=== PATIENT | male | born 1980 | race Caucasian/White ===

== ENCOUNTER 2023-04-13 11:12 | Emergency (ER) | payer BC, SELFPAY ==
[2023-04-13 11:14] VITALS: BP 136/78; PULSE 78; RESP 16; TEMP 35.7; O2SAT 99; BMI 28.2
--- NOTE | 2023-04-13 11:34 | EX.ED.DYSGE1 ---
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 Patient states that for the last 3 to 4 weeks, he has noticed that his lower extremities are more tight, he is having joint pain throughout his entire body. Patient states he has significant feet pain. He denies any known injury, denies pushing himself harder than usual. He states today, he was unable to get out of bed. He is here for evaluation. He states in the morning is when it is worse however once he gets moving, he is able to loosen up and feel better. PFSH <ADAM Mitchell - Last Filed: 04/13/23 14:46> PFSH Allergy/AdvReac Type Severity Reaction Status Date / Time propofol Allergy Anaphylaxis Verified 04/13/23 11:13 Social History Smoking Status: Never smoker ROS <ADAM Mitchell - Last Filed: 04/13/23 14:46> ROS ED ROS Narrative Constitutional: Negative for fever, chills, weight loss, weakness Eyes: Negative for vision loss, vision change, double vision ENT: Negative for any sore throat, ear pain, congestion Cardiovascular: Negative for any chest pain, tightness, palpitations Respiratory: Negative for any cough, sputum production, hemoptysis, dyspnea, dyspnea on exertion, orthopnea Gastrointestinal: Negative for any abdominal pain, nausea, vomiting, diarrhea, constipation, blood in stool, blood in vomit : Negative for any urinary frequency, dysuria, retention, blood in urine Muscle skeletal: Negative for any neck pain, back pain. Positive for myalgias, arthralgias, pain to joints specially on his elbows shoulders knees Neurological: Negative for any headache, syncope, paresthesias, dizziness Skin: Negative for any rashes, lumps, itching, abrasions, lacerations Psychiatric: Negative for any depression, anxiety, stress, suicidal ideation, homicidal ideation Hematologic: Negative for any easy bruising, excessive bruising, easy bleeding Allergies: Negative for any eczema, hives, rash EXAM <ADAM Mitchell - Last Filed: 04/13/23 14:46> Physical Exam Narrative Exam Narrative: Vital signs reviewed. Patient has a flat affect, patient is in no obvious distress, HEET: Head normocephalic atraumatic, TMs clear bilaterally. Posterior pharynx is clear, moist mucous membranes. Nares clear bilaterally. Neck: Supple with no lymphadenopathy or tenderness. No signs of meningismus. Cardiac: Regular rate and rhythm no murmurs gallops or rubs, equal peripheral pulses bilaterally. Respiratory: Lungs clear to auscultation bilaterally. No chest tenderness. Abdomen: Soft, nontender, nondistended. No abdominal bruit or pulsatile masses. No hepatosplenomegaly Extremities: No peripheral edema, no signs of gross trauma or deformity. Active full range of motion of all extremities. Neuro: Cranial nerves II through XII intact, no focal neurological deficits. Skin: Clean dry and intact with no rash, purpura, petechiae, vesicles or pustules. Backs/flank: No CVA tenderness, no midline spinal tenderness, no deformity. Psych: Normal mood and affect. No SI, HI or acute psychosis. Const Vital Signs: 04/13/23 11:14 04/13/23 11:12 04/13/23 13:12 Temperature 96.3 F L Temperature Source Temporal Pulse Rate 78 64 Respiratory Rate 16 14 Respiratory Effort Normal Respiratory Pattern Normal Blood Pressure 136/78 H 132/78 H Blood Pressure Mean 97 96 Pulse Ox 99 97 Oxygen Delivery Method Room Air Room Air Positive well nourished and well developed General Appearance ED: well developed <Dr. Jaun Steve MD - Last Filed: 04/13/23 22:06> Physical Exam Const Vital Signs: 04/13/23 11:14 04/13/23 11:12 04/13/23 13:12 Temperature 96.3 F L Temperature Source Temporal Pulse Rate 78 64 Respiratory Rate 16 14 Respiratory Effort Normal Respiratory Pattern Normal Blood Pressure 136/78 H 132/78 H Blood Pressure Mean 97 96 Pulse Ox 99 97 Oxygen Delivery Method Room Air Room Air MDM <ADAM Mitchell - Last Filed: 04/13/23 14:46> MDM Lab Data Labs: Laboratory Results - last 24 hr 04/13/23 04/13/23 12:07 12:50 WBC 14.2 H RBC 4.69 Hgb 14.9 Hct 44.9 MCV 95.7 H MCH 31.8 MCHC 33.2 RDW Std Deviation 43.8 RDW Coeff of George 12.4 Plt Count 336 MPV 10.2 Immature Gran % (Auto) 0.400 Neut % (Auto) 81.8 H Lymph % (Auto) 8.6 L [place] % (Auto) 8.5 Eos % (Auto) 0.3 Baso % (Auto) 0.4 Absolute Neuts (auto) 11.6 H Absolute Lymphs (auto) 1.22 Nucleated RBC % 0 Sodium 139 Potassium 3.9 Chloride 105 Carbon Dioxide 30.0 Anion Gap 4 L BUN 9 Creatinine 0.61 L Estim Creat Clear Calc 180.94 Est GFR (MDRD) Af Amer 187 Est GFR (MDRD) Non-Af 155 BUN/Creatinine Ratio 14.7 Glucose 95 Calcium 9.3 Total Bilirubin 0.50 AST 54 H ALT 71 H Alkaline Phosphatase 78 Total Creatine Kinase 807 H Total Protein 7.9 Albumin 3.5 Globulin 4.4 H Albumin/Globulin Ratio 0.8 L Urine Color Yellow Urine Clarity Clear Urine pH 8.0 Ur Specific [place] 1.015 Urine Protein Negative Urine Glucose (UA) Normal Urine Ketones Negative Urine Occult Blood Negative Urine Nitrite Negative Urine Bilirubin Negative Urine Urobilinogen Normal Ur Leukocyte Esterase Negative Urine RBC 0 SEEN Urine WBC 0 SEEN Ur Squamous Epith Cells 0 SEEN Urine Bacteria 0 SEEN Urine Mucus 0 SEEN Treatment and Re-Evaluation :: Patient appears to be in no obvious distress, vital signs are stable. Presenting to the emergency department with complaints of generalized bodyaches, tightness in his lower muscles, shoulder pain. Patient is in no obvious respiratory distress. Differential diagnosis includes rhabdomyolysis, muscle strain, autoimmune disorder. Patient will receive basic laboratory values ensure that there is no renal insufficiency, leukocytosis. Patient will receive a CK total to rule out any rhabdomyolysis. Patient was given IV fluids, IV Toradol. He will be reevaluated. On reevaluation, the patient was feeling much better with IV fluids, IV Toradol. Patient is ambulatory and felt much more steady. Patient's laboratory values showed a slight leukocytosis with a white blood count of 14.2, chemistries showed a creatinine 1.61 slightly low, AST 54 with ALT of 71, slightly elevated. Total creatine kinase was elevated at 807, however secondary to no renal injury, patient's urinalysis was unremarkable, negative for any protein or blood. Patient is currently not in acute rhabdomyolysis. However I will reach out to the patient's specialist at [facility] to discuss the patient's condition and have a plan set. I spoke with the patient he is happy with the plan of care. We spoke to her partner of his care provider at [facility], we will defer all treatment to them. Patient will follow-up early this upcoming week. I spoke with the patient at length, they are happy with the plan of care. We also looked at his past lab values and they were similar. Patient continue to take ibuprofen, Tylenol, maintain hydration. He will follow-up outpatient. All questions answered stable for discharge <Dr. Jaun Steve MD - Last Filed: 04/13/23 22:06> [facility] Lab Data Labs: Laboratory Results - last 24 hr 04/13/23 04/13/23 12:07 12:50 WBC 14.2 H RBC 4.69 Hgb 14.9 Hct 44.9 MCV 95.7 H MCH 31.8 MCHC 33.2 RDW Std Deviation 43.8 RDW Coeff of George 12.4 Plt Count 336 MPV 10.2 Immature Gran % (Auto) 0.400 Neut % (Auto) 81.8 H Lymph % (Auto) 8.6 L [place] % (Auto) 8.5 Eos % (Auto) 0.3 Baso % (Auto) 0.4 Absolute Neuts (auto) 11.6 H Absolute Lymphs (auto) 1.22 Nucleated RBC % 0 Sodium 139 Potassium 3.9 Chloride 105 Carbon Dioxide 30.0 Anion Gap 4 L BUN 9 Creatinine 0.61 L Estim Creat Clear Calc 180.94 Est GFR (MDRD) Af Amer 187 Est GFR (MDRD) Non-Af 155 BUN/Creatinine Ratio 14.7 Glucose 95 Calcium 9.3 Total Bilirubin 0.50 AST 54 H ALT 71 H Alkaline Phosphatase 78 Total Creatine Kinase 807 H Total Protein 7.9 Albumin 3.5 Globulin 4.4 H Albumin/Globulin Ratio 0.8 L Urine Color Yellow Urine Clarity Clear Urine pH 8.0 Ur Specific [place] 1.015 Urine Protein Negative Urine Glucose (UA) Normal Urine Ketones Negative Urine Occult Blood Negative Urine Nitrite Negative Urine Bilirubin Negative Urine Urobilinogen Normal Ur Leukocyte Esterase Negative Urine RBC 0 SEEN Urine WBC 0 SEEN Ur Squamous Epith Cells 0 SEEN Urine Bacteria 0 SEEN Urine Mucus 0 SEEN Treatment and Re-Evaluation Comments:: I have personally performed a face to face assessment of the patient and have reviewed the FANI Note. I performed a substantive portion of the visit including all aspects of the following. My go findings include: History is myalgias that are worsening for the past 3 to 4 weeks. No focal weakness or numbness. No fevers or chills. No hematuria. 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 Able to walk. All compartments of extremities are soft and nondistended. Neurovascular intact distally. Able to move all joints without significant difficulty. Medical Decison Making agree with labs and treatment as above. Other additions or changes: [None] Discharge Plan Triage Chief Complaint: Other, Pain/Inj ED Midlevel Provider: Sean Rangel ED Provider: Jaun Steve Dx/Rx/DC Orders Clinical Impression: Myalgia, Myopathy, Mitochondrial myopathies Instructions: ED Myalgias, ED Myofascial Pain Syndrome Primary Care Provider: Elizabeth Ly Referrals: Elizabeth Ly [email or web address] [Primary Care Provider] - Activity Restrictions/Additional Instructions: Please continue to talk to your specialist at [facility]. Maintain hydration. Use ibuprofen, Tylenol. Disposition Disposition: Home, Self Care Discharge Date/Time: 04/13/23 14:56
[2023-04-13] MEDS: 0.9% Normal Saline (1000mL) 1,000 ML 1000 ML IV (12:04)
[2023-04-13] MEDS: Ketorolac 15 MG/ML Vial IV (12:04)
[2023-04-13 12:11] LABS: Absolute Lymphocyte Count 1.22 X10^3/uL (0.83-4.51); Absolute Neutrophil Count 11.6 X10^3/uL (2.0-7.7); Basophil# 0.06 X10^3/uL; Basophil% 0.4 % (0-1); Eosinophil# 0.04 X10^3/uL; Eosinophils% 0.3 % (0-5); Hematocrit 44.9 % (40-54); Hemoglobin 14.9 g/dL (13.0-16.5); Lymphocyte # 1.22 X10^3/ul (0.83-4.51); Lymphocyte % 8.6 % (19-41); Mean Corp Hgb Conc 33.2 g/dL (32-36); Mean Corpuscular Hgb 31.8 pg (27.0-32.0); Mean Corpuscular Volume 95.7 fL (80-94); Mean Platelet Vol. 10.2 fl (6.2-12.0); Monocyte% 8.5 % (0-10); NRBC Flagged by Analyzer 0 % (0-5); Neutrophil # 11.59 X10^3/uL (2.7-7.7); Neutrophil % 81.8 % (47-70); Platelet Count 336 K/mm3 (150-450); RBC Distribution Width CV 12.4 % (11.6-14.6); RBC Distribution Width SD 43.8 fl (35.1-43.9); Red Blood Count 4.69 M/mm3 (4.6-6.2); White Blood Count 14.2 K/mm3 (4.4-11.0)
[2023-04-13 12:29] LABS: ALB/GLOB Ratio 0.8 RATIO (0.9-2.4); AST(SGOT) 54 U/L (15-37); Alanine Aminotransfer ALT/SGPT 71 U/L (16-61); Albumin, Serum 3.5 g/dL (3.2-5.0); Alkaline Phosphatase 78 U/L (45-117); Anion Gap 4 (5-15); BUN 9 mg/dL (7-18); BUN/Creat Ratio 14.7 RATIO (10-20); CPK Total, Creatine Kinase 807 U/L (39-308); Calcium,Total 9.3 mg/dL (8.5-10.1); Chloride 105 mmol/L (98-107); Creatinine, Serum 0.61 mg/dL (0.70-1.30); EST Glomerular Filtration Rate 155 mL/min (>60); Est Glom Filt Rate - Afr Amer 187 mL/min (>60); Estimated Creatinine Clearance 180.94 ml/min; Globulin 4.4 g/dL (2.2-4.2); Glucose 95 mg/dL (74-106); Potassium 3.9 mmol/L (3.5-5.1); Protein, Total 7.9 g/dL (6.4-8.2); Sodium Level 139 mmol/L (136-145)
[2023-04-13 12:58] LABS: Color, Urine Yellow (Yellow); Glucose, Dipstick Normal (Normal); Ketone-Dipstick Negative (Negative); Leukocyte Esterase-Dipstick Negative /ul (Negative); Nitrite-Dipstick Negative (Negative); Occult Blood-Urine Negative /ul (Negative); Protein-Dipstick Negative (Negative); Specific Gravity, Urine 1.015 (1.002-1.030); Urine Bilirubin Dipstick Negative (Negative); Urine Clarity Clear (Clear); Urine Urobilinogen Normal (Normal)
[2023-04-13 12:59] LABS: Bacteria 0 SEEN /hpf (None Seen); Mucous, Urine 0 SEEN /hpf (<or=2+); Red Blood Cells-Urine 0 SEEN /hpf (0-5); Squamous Epithelial Cells - UA 0 SEEN /hpf (0-5); White Blood Cells 0 SEEN /hpf (0-5)
[2023-04-13 13:12] VITALS: BP 132/78; PULSE 64; RESP 14; O2SAT 97
== END 2023-04-13 14:56 | disposition home or self-care (01) ==
PROVIDERS: Nurse Practitioner; Emergency Provider Emergency Medicine; PCP Family Medicine; Visit Provider Emergency Medicine
DX: G71.3 Mitochondrial myopathy, not elsewhere classified (principal); M79.10 Myalgia, unspecified site
CPT/HCPCS: 80053; 81001; 82550; 85025; 96361; 96374; 99283; J7030; A4216